=== PATIENT | female | born 1970 | race Caucasian/White ===

== ENCOUNTER 2019-08-08 18:28 | Emergency (ER) | payer OTHER, MEDICAID ==
--- NOTE | 2019-08-08 19:13 | ER Document Report ---
ED Extremity Problem, Upper - General Chief Complaint: Shoulder Injury Stated Complaint: RIGHT ARM PAIN Time Seen by Provider: 08/08/19 19:07 Primary Care Provider: [facility] [Provider Group] - Follow up as needed Mode of Arrival: Ambulatory Information source: Patient Notes: 49-year-old female presented to ED for complaint of pain and discomfort in the right shoulder and arm, left neck and back. 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 This was on Monday at 9 PM. She told the cement handler of the bar that she was hurting a lot but that she would be okay. She states the pain is been increasing since then and now she cannot raise up her right arm and is very painful to move her right shoulder. She states she went to the primary care and they told her she would have to come to the emergency room so she called the cement handler and then he sent her to the emergency room. She states when she woke up this morning her right shoulder was cold and numb and then when the feeling started, back it felt like there was 1000 answer bees sting in her from her shoulder to her fingertips on the right side. TRAVEL OUTSIDE OF THE [place] IN LAST 30 DAYS: No - HPI Patient complains to provider of: Injury, Pain, Right, Left, Arm, Elbow, Shoulder Onset: Other - Monday Recent injury: Yes Where: Work Quality of pain: Achy - Right, Sharp - Left Severity of pain: Still present, Sudden Pain Level: 4 Context: Blow Associated symptoms: Back pain - Left, Neck pain - Left, Other Exacerbated by: Movement, Exertion Relieved by: Rest, Positioning Similar symptoms previously: Yes Recently seen / treated by doctor: No - Related Data Allergies/Adverse Reactions: Penicillins Allergy (Verified 08/08/19 18:58) Home Medications: HYDRAZAZINE. METOPROLOL Past Medical History - General Information source: Patient - Social History Smoking Status: Former Smoker Chew tobacco use (# tins/day): No Frequency of alcohol use: None Drug Abuse: None Occupation: [employer] Lives with: Family Family History: Reviewed & Not Pertinent Patient has suicidal ideation: No Patient has homicidal ideation: No - Past Medical History Cardiac Medical History: Reports: None Pulmonary Medical History: Reports: Hx Asthma, Hx COPD EENT Medical History: Reports: None Neurological Medical History: Reports: None Endocrine Medical History: Reports: None Renal/ Medical History: Reports: None Malignancy Medical History: Reports: None GI Medical History: Reports: Hx Gastroesophageal Reflux Disease Musculoskeletal Medical History: Reports Hx Fibromyalgia, Reports Hx Muscle Spasm, Reports Hx Musculoskeletal Deformity, Reports Hx Musculoskeletal Trauma Skin Medical History: Reports None Psychiatric Medical History: Reports: Hx Anxiety, Hx Depression Traumatic Medical History: Reports: None Infectious Medical History: Reports: None Past Surgical History: Reports: Hx Section, Hx Hysterectomy, Hx Orthopedic Surgery - "titanium plate in my neck" - Immunizations Hx Diphtheria, Pertussis, Tetanus Vaccination: Yes Review of Systems - Review of Systems Constitutional: No symptoms reported EENT: No symptoms reported Cardiovascular: No symptoms reported Respiratory: No symptoms reported Gastrointestinal: No symptoms reported Genitourinary: No symptoms reported Female Genitourinary: No symptoms reported Musculoskeletal: Back pain, Joint pain, Neck pain Skin: No symptoms reported Hematologic/Lymphatic: No symptoms reported Neurological/Psychological: No symptoms reported -: Yes All other systems reviewed and negative Physical Exam - Vital signs Vitals: Pulse Resp BP Pulse Ox 86 18 145/95 H 100 08/08/19 18:33 08/08/19 18:33 08/08/19 18:33 08/08/19 18:33 Interpretation: Normal - General General appearance: Appears well, Alert - HEENT Head: Normocephalic, Atraumatic Eyes: Normal Pupils: PERRL - Respiratory Respiratory status: No respiratory distress Chest status: Nontender Breath sounds: Normal Chest palpation: Normal - Cardiovascular Rhythm: Regular Heart sounds: Normal auscultation Murmur: No - Abdominal Inspection: Normal Distension: No distension Bowel sounds: Normal Tenderness: Nontender Organomegaly: No organomegaly - Back Back: Normal, Tender, Vertebra tenderness. No: Deformity/step-off, CVA tenderness, Scars, Scoliosis, Wounds - Extremities General upper extremity: Normal inspection, Normal color, Normal ROM, Normal temperature General lower extremity: Normal inspection, Nontender, Normal color, Normal ROM, Normal temperature, Normal weight bearing. No: Mame's sign Shoulder: Tender. No: Abrasion, Deformity, Dislocation, Ecchymosis, Instability, Laceration - Neurological Neuro grossly intact: Yes Cognition: Normal Orientation: AAOx4 [place] Coma Scale Eye Opening: Spontaneous [place] Coma Scale Verbal: Oriented [place] Coma Scale Motor: Obeys Commands Sandor Coma Scale Total: 15 Speech: Normal Motor strength normal: LUE, RUE, LLE, RLE Sensory: Normal - Psychological Associated symptoms: Normal affect, Normal mood - Skin Skin Temperature: Warm Skin Moisture: Dry Skin Color: Normal Course - Re-evaluation Re-evalutation: 08/08/19 21:21 No acute findings on x-rays of the neck shoulder or thoracic spine. Written report of these x-rays was given to patient to follow-up with her primary care and orthopedics. Patient was treated with Toradol IM in the emergency room and discharged home with prescription for Flexeril, Pepcid, and Toradol. Patient was instructed that if she continued to have pain she needed to follow-up with orthopedics to get further testing. She was given a written work excuse until Monday. Patient verbalized understanding and agreement with treatment plan. This was a work-related injury. - Vital Signs Vital signs: Temp Pulse Resp BP Pulse Ox 98.9 F 86 18 145/95 H 100 08/08/19 18:59 08/08/19 18:33 08/08/19 18:33 08/08/19 18:33 08/08/19 18:33 - Diagnostic Test Radiology reviewed: Image reviewed, Reports reviewed Discharge - Discharge Clinical Impression: Neck pain on left side Right shoulder pain Qualifiers: Chronicity: acute Qualified Code(s): M25.511 - Pain in right shoulder Left shoulder pain Qualifiers: Chronicity: acute Qualified Code(s): M25.512 - Pain in left shoulder Condition: Stable Disposition: HOME, SELF-CARE Additional Instructions: NECK INJURY (CERVICAL STRAIN): You have a neck strain. This is an injury to the muscles and ligaments in the neck. There is no evidence of a fracture of the neck bones. Also, no injury to the spinal cord or nerve roots was detected. Usually, stiffness and pain INCREASE for the first 24-48 hours after the injury. The pain will gradually resolve and the neck will become more mobile. Most patients are back at work or school within a few days. Typically, complete healing takes about two or three weeks. The usual initial treatment is rest and cold packs. A neck collar may be placed to keep the muscles of the neck at rest. Antiinflammatory and muscle relaxing medication are often used to reduce the spasm and irritation. You should call the doctor, or go to the hospital, if you develop numbness or weakness in any extremity, problems with your bladder or bowel, or pain radiating down the arms. MUSCLE STRAIN: You have strained a muscle -- torn the fibers within the muscle. This often occurs with strenuous exertion, or during an injury that suddenly stretches the muscle. The seriousness of a strain varies. Some strains heal within days, others cause problems for months. X-rays cannot show a muscle strain. X-rays are taken only if symptoms suggest that a fracture could be present. The usual treatment of a muscle strain is rest and ice packs. Sometimes, a sling, splint, or crutches may be necessary to rest the muscle. The muscle can be used again once pain subsides. Severe strains require a special exercise and stretching program to prevent permanent stiffness and disability. Your doctor will advise you if this will be necessary. Call the doctor immediately if pain or swelling becomes severe, or if numbness or discoloration develop. CONTUSION: Your injury has resulted in a contusion -- a crushing of the deep tissues. No injury to important structures was detected during the physician's exam. Contusions vary in the amount of pain they cause, and in the length of time required for healing. Typically, the area will become bruised, and will remain painful to touch for two or three weeks. However, most patients are back to working and playing within a few days. After the initial period of rest and cold-packs, your symptoms (together with the doctor's recommendations) will determine how rapidly you can get back to full activity. Usually this means "do what feels okay, but don't do things that hurt." If re-examination was recommended, it's important to follow up as instructed. Call the doctor or return any time if pain increases, if swelling becomes severe, if you develop numbness or weakness in an injured extremity, or if any other alarming symptoms occur. Shoulder Injury You have injured your shoulder. This usually results from stretching or tearing of the tendons during trauma. Time and protection are required in order to heal properly. Many injuries are quite disabling, and should be taken seriously. Initial treatment includes cold packs and a sling to rest the shoulder. The physician has assessed the seriousness of your injury, and has outlined a treatment plan. Understand that this treatment may change, depending on how you progress. If a re-examination was recommended, it is important that you follow up as instructed. Some shoulder injuries (such as partial tear of the rotator cuff) are only suspected after you've failed to improve. Call us if there's severe pain, numbness, or loss of function. USE OF TYLENOL (ACETAMINOPHEN): Acetaminophen may be taken for pain relief or fever control. It's much safer than aspirin, offering a wider range of "safe" dosages. It is safe during . Some brand names are Tylenol, Panadol, Datril, Anacin 3, Tempra, and Liquiprin. Acetaminophen can be repeated every four hours. The following are maximum recommended dosages: WEIGHT Dose Drops Elixir Chewable(80mg) (LBS.) drprs=droppers tsp=teaspoon 6 40 mg 0.4 ml (1/2) 6-11 80 mg 0.8 ml (full) tsp 1 tab 12-16 120 mg 1 1/2 drprs 3/4 tsp 1 1/2 tabs 17-23 160 mg 2 drprs 1 tsp 2 tabs 24-30 240 mg 3 drprs 1 1/2 tsp 3 tabs 30-35 320 mg 2 tsp 4 tabs 36-41 360 mg 2 1/4 tsp 4 1/2 tabs 42-47 400 mg 2 1/2 tsp 5 tabs 48-53 480 mg 3 tsp 6 tabs 54-59 520 mg 3 1/4 tsp 6 1/2 tabs 60-64 560 mg 3 1/2 tsp 7 tabs 65-70 600 mg 3 3/4 tsp 7 1/2 tabs 71-76 640 mg 4 tsp 8 tabs 77-82 720 mg 4 1/2 tsp 9 tabs 83-88 800 mg 5 tsp 10 tabs >89 pounds or adults 650 mg to 900 mg Acetaminophen can be repeated every four hours. Maximum dose not to exceed 4000 mg a day. These maximum recommended dosages are slightly higher than the dosages written on the product container, but these dosages are very safe and below the toxic dosage for acetaminophen. Exercise Program for the Shoulder Since the shoulder moves in so many directions, the joint attachment is weak. Muscles provide most of the stability to the shoulder. You must exercise your shoulder to prevent painful instability or stiffening. PASSIVE - These may be begun within a few days of the injury. While standing, lean forward, allowing the arm to hang down towards the floor. Move the arm in small circles while slowly twisting your chest towards and away from the hanging arm. Do this for one minute. ACTIVE - These may be performed when the doctor gives permission. Begin with the arms at the sides. Raise the arms forward (shoulder's width apart) unt il they reach shoulder level. Then slowly swing both arms back until they are aiming straight out away from each other. Then bring them forward again, and finally, lower them to your sides. Repeat 20 to 30 times. As you improve, put weights in your hands for the exercise. Start with one pound, and work up to 10 pounds. Never use more than is comfortable. Athletes may work up to 30 pounds. ICE PACKS: Apply ice packs frequently against the painful area. Many different schedules are recommended, such as "20 minutes on, 20 minutes off" or "one hour ice, two hours rest." If you need to work, you may need to go longer between ice treatments. You should plan to have the area ice packed AT LEAST one fourth of the time. The ice should be applied over the wrap, tape, or splint, or over a layer of cloth -- not directly against the skin. Some ice bags have a built-in cloth and can be put directly on the skin. WARM PACKS: After approximately two days, apply gentle heat (such as a heating pad or hot water bottle) for about 20 to 30 minutes about every two hours -- at least four times daily. Warmth and elevation will help you make a more rapid recovery, and will ease the pain considerably. Do not use HOT heat, and never apply heat for longer than 30 minutes. The continuous heat can invisibly damage skin and muscles -- even when no burn is seen on the surface. Damaged muscles can make you MORE sore. MUSCLE RELAXERS: Muscle relaxing medications are usually prescribed for acute muscle spasm or injury to the neck and back. They are often combined with antiinflammatory pain medication for increased relief. You may stop the muscle relaxer when the pain and stiffness have improved. Start the medication again if spasms recur. Muscle relaxers may cause drowsiness, especially with the first dose. Do not operate machinery or drive while under the effects of the medication. Most muscle relaxers last up to 24 hours. Do not combine the medication with alcohol. Toradol Injection You have been given an injection of ketorolac tromethamine (Toradol). This is an excellent, safe drug for pain control. It also has potent antiinflammatory action. You should have significant pain relief within about one hour. Toradol is not addicting and is non-sedating. It does not interfere with driving or work. Call or return if you develop itching, hives, shortness of breath, or rash. FOLLOW-UP CARE: If you have been referred to a physician for follow-up care, call the physicians office for an appointment as you were instructed or within the next two days. If you experience worsening or a significant change in your symptoms, notify the physician immediately or return to the Emergency Department at any time for re-evaluation. Prescriptions: Ketorolac Tromethamine [Toradol 10 mg Tablet] 10 mg PO Q8HP PRN #7 tablet PRN Reason: Cyclobenzaprine HCl [Flexeril 10 mg Tablet] 10 mg PO TIDP PRN #15 tab PRN Reason: Famotidine [Pepcid 20 mg Tablet] 20 mg PO BID #12 tablet Forms: Elevated Blood Pressure, Return to Work Referrals: [facility] ([facility] [Provider Group] - Follow up as needed
--- NOTE | 2019-08-08 19:43 | RADIOLOGY REPORT (SQ) ---
EXAM DESCRIPTION: CERV SP 4 OR 5 VIEWS; T SPINE AP/LAT; SHOULDER LEFT 2 OR MORE VIEWS; SHOULDER RIGH T 2 OR MORE VIEWS COMPLETED DATE/TIME: 08/08/2019 7:34 pm REASON FOR STUDY: Pain and injury to the neck and shoulder; pain and injury; Pain injury COMPARISON: None. FINDINGS: Five views cervical spine: C4 through C6 anterior instrumentation, intact. No evidence o f significant malalignment. Disc disease below and above surgery. No fracture. Patent neural xavier rizwan. Clear lung apices. Three views right shoulder: No bone, joint or soft tissue abnormality. Three views left shoulder: No bone, joint or soft tissue abnormality. Two views thoracic spine: Mild scoliosis. Mild multilevel disc space narrowing with small osteophyt es, degenerative. No fracture. No mediastinal widening. Clear lungs. TECHNICAL DOCUMENTATION: JOB ID: [id number] Reading location - IP/workstation name: [email or web address]
--- NOTE | 2019-08-08 19:43 | RADIOLOGY REPORT (SQ) ---
EXAM DESCRIPTION: CERV SP 4 OR 5 VIEWS; T SPINE AP/LAT; SHOULDER LEFT 2 OR MORE VIEWS; SHOULDER RIGH T 2 OR MORE VIEWS COMPLETED DATE/TIME: 08/08/2019 7:34 pm REASON FOR STUDY: Pain and injury to the neck and shoulder; pain and injury; Pain injury COMPARISON: None. FINDINGS: Five views cervical spine: C4 through C6 anterior instrumentation, intact. No evidence o f significant malalignment. Disc disease below and above surgery. No fracture. Patent neural xavier rizwan. Clear lung apices. Three views right shoulder: No bone, joint or soft tissue abnormality. Three views left shoulder: No bone, joint or soft tissue abnormality. Two views thoracic spine: Mild scoliosis. Mild multilevel disc space narrowing with small osteophyt es, degenerative. No fracture. No mediastinal widening. Clear lungs. TECHNICAL DOCUMENTATION: JOB ID: [id number] Reading location - IP/workstation name: [email or web address]
--- NOTE | 2019-08-08 19:43 | RADIOLOGY REPORT (SQ) ---
EXAM DESCRIPTION: CERV SP 4 OR 5 VIEWS; T SPINE AP/LAT; SHOULDER LEFT 2 OR MORE VIEWS; SHOULDER RIGH T 2 OR MORE VIEWS COMPLETED DATE/TIME: 08/08/2019 7:34 pm REASON FOR STUDY: Pain and injury to the neck and shoulder; pain and injury; Pain injury COMPARISON: None. FINDINGS: Five views cervical spine: C4 through C6 anterior instrumentation, intact. No evidence o f significant malalignment. Disc disease below and above surgery. No fracture. Patent neural xavier rizwan. Clear lung apices. Three views right shoulder: No bone, joint or soft tissue abnormality. Three views left shoulder: No bone, joint or soft tissue abnormality. Two views thoracic spine: Mild scoliosis. Mild multilevel disc space narrowing with small osteophyt es, degenerative. No fracture. No mediastinal widening. Clear lungs. TECHNICAL DOCUMENTATION: JOB ID: [id number] Reading location - IP/workstation name: [email or web address]
--- NOTE | 2019-08-08 19:43 | RADIOLOGY REPORT (SQ) ---
EXAM DESCRIPTION: CERV SP 4 OR 5 VIEWS; T SPINE AP/LAT; SHOULDER LEFT 2 OR MORE VIEWS; SHOULDER RIGH T 2 OR MORE VIEWS COMPLETED DATE/TIME: 08/08/2019 7:34 pm REASON FOR STUDY: Pain and injury to the neck and shoulder; pain and injury; Pain injury COMPARISON: None. FINDINGS: Five views cervical spine: C4 through C6 anterior instrumentation, intact. No evidence o f significant malalignment. Disc disease below and above surgery. No fracture. Patent neural xavier rizwan. Clear lung apices. Three views right shoulder: No bone, joint or soft tissue abnormality. Three views left shoulder: No bone, joint or soft tissue abnormality. Two views thoracic spine: Mild scoliosis. Mild multilevel disc space narrowing with small osteophyt es, degenerative. No fracture. No mediastinal widening. Clear lungs. TECHNICAL DOCUMENTATION: JOB ID: [id number] Reading location - IP/workstation name: [email or web address]
[2019-08-08] MEDS ORDERED: KETOROLAC TROMETHAMINE INJ/PF 30 MG/1 ML SDV IM ONE (20:57)
[2019-08-08 21:31] VITALS: BP 118/85
== END 2019-08-08 21:28 | disposition home or self-care (01) ==
LOC: ER 18:28
DX: M25.511 Pain in right shoulder (principal); M25.512 Pain in left shoulder; M54.2 Cervicalgia; M54.9 Dorsalgia, unspecified; M79.601 Pain in right arm; W20.8XXA Other cause of strike by thrown, projected or falling object, initial encounter; Y93.89 Activity, other specified; Y92.511 Restaurant or cafe as the place of occurrence of the external cause; Y99.0 Civilian activity done for income or pay; J44.9 Chronic obstructive pulmonary disease, unspecified; Z79.899 Other long term (current) drug therapy; Z88.0 Allergy status to penicillin
CPT/HCPCS: 99283; 96372; 72050; 73030 ×2; 72070; J1885

== ENCOUNTER 2019-08-31 02:38 | Emergency (ER) | payer MEDICAID, OTHER ==
[2019-08-31] MEDS ORDERED: LORAZEPAM INJ 2 MG/1 ML VIAL IV ONE (02:49)
--- NOTE | 2019-08-31 03:22 | ER Document Report ---
Entered by LORI DONNELLY SCRIBE 08/31/19 0255 Acting as scribe for:WIN SALCEDO IV, MD ED Substance Abuse / Acc. OD - General Mode of Arrival: Medic Information source: Emergency Med Personnel TRAVEL OUTSIDE OF THE [place] IN LAST 30 DAYS: No <WIN SALCEDO IV - Last Filed: 08/31/19 05:55> <GOLDTERRIE Emigdio - Last Filed: 08/31/19 13:41> - General Stated Complaint: ETOH Time Seen by Provider: 08/31/19 02:49 Primary Care Provider: GILBERT APONTE MD [HONORARY] - Follow up as needed Notes: This 49 year old female patient brought in by EMS presents to the ED today with complaints of ETOH abuse that occurred prior to arrival. EMS reports that they were called by the patient's 16 year old son who stated that the patient has been drinking since 1900 last night and was outside stumbling around. EMS reports that the patient was initially cooperative and declined transport to the ED, so they advised her to go in the house and lay down. EMS states that they were called out again because the patient was laying on the ground outside and the son became concerned. They report that they were at the scene for approximately x3 hours waiting on IFS to arrive for a possible IVC. EMS states that the patient became hostile and agitated when IFS arrived and went voluntarily into the ambulance so she wouldn't be IVC'ed. EMS reports that the patient became combative en route, so they placed her in 4-point restraints and administered IV Versed. According to EMS, a large bottle of vodka was found at the scene, but they are unaware of how much she drank. (WIN SALCEDO IV) - Related Data Allergies/Adverse Reactions: Penicillins Allergy (Verified 08/08/19 18:58) Past Medical History - General Information source: [facility] Records - Social History Smoking Status: Unknown if Ever Smoked Cigarette use (# per day): No Chew tobacco use (# tins/day): No Smoking Education Provided: No Lives with: Family Family History: Reviewed & Not Pertinent Patient has suicidal ideation: No Patient has homicidal ideation: No Pulmonary Medical History: Reports: Hx Asthma, Hx COPD GI Medical History: Reports: Hx Gastroesophageal Reflux Disease Musculoskeletal Medical History: Reports Hx Fibromyalgia, Reports Hx Muscle Spasm, Reports Hx Musculoskeletal Deformity, Reports Hx Musculoskeletal Trauma Psychiatric Medical History: Reports: Hx Anxiety, Hx Depression Past Surgical History: Reports: Hx Section, Hx Hysterectomy, Hx Or thopedic Surgery - "titanium plate in my neck" - Immunizations Hx Diphtheria, Pertussis, Tetanus Vaccination: Yes <WIN SALCEDO IV - Last Filed: 08/31/19 05:55> Review of Systems - Review of Systems Constitutional: See HPI, Other - ETOH abuse EENT: No symptoms reported Cardiovascular: No symptoms reported Gastrointestinal: No symptoms reported Genitourinary: No symptoms reported Female Genitourinary: No symptoms reported Musculoskeletal: No symptoms reported Skin: No symptoms reported Hematologic/Lymphatic: No symptoms reported Neurological/Psychological: No symptoms reported -: Yes All other systems reviewed and negative <WIN SALCEDO IV - Last Filed: 08/31/19 05:55> Physical Exam - General General appearance: Alert, Other - Smells of byproducts of ETOH metabolism - HEENT Head: Normocephalic, Atraumatic Eyes: Normal Pupils: PERRL - Respiratory Respiratory status: No respiratory distress Chest status: Nontender Breath sounds: Normal Chest palpation: Normal - Cardiovascular Rhythm: Regular, Tachycardia Heart sounds: Normal auscultation Murmur: No Friction rub: No Gallop: None auscultated - Abdominal Inspection: Normal Distension: No distension Bowel sounds: Normal Tenderness: Nontender - Abdomen soft Organomegaly: No organomegaly - Back Back: Normal, Nontender - Extremities General upper extremity: Normal inspection Knee: Abrasion - Left knee - Neurological Neuro grossly intact: Yes Speech: Other - Slurred - Skin Skin Temperature: Warm Skin Moisture: Dry Skin Color: Normal <WIN SALCEDO IV - Last Filed: 08/31/19 05:55> - Vital signs Vitals: Temp Pulse Resp BP Pulse Ox 98.0 F 104 H 14 135/85 H 95 08/31/19 02:39 08/31/19 02:39 08/31/19 02:39 08/31/19 02:39 08/31/19 02:39 Course - Laboratory Result Diagrams: 08/31/19 03:00 08/31/19 03:00 - Transfer of Care Care transferred to following provider: Dr. Godl at 0600 <WIN SALCEDO IV - Last Filed: 08/31/19 05:55> - Laboratory Result Diagrams: 08/31/19 03:00 08/31/19 03:00 <TERRIE GOLD - Last Filed: 08/31/19 13:41> - Re-evaluation Re-evalutation: 08/31/19 13:32 Patient ambulatory in hallway walking to the bathroom without any signs of gait disturbance or speech disturbance patient is medically cleared to be discharged home with follow-up as determine for alcohol detox follow-up. (TERRIE GOLD) - Vital Signs Vital signs: Temp Pulse Resp BP Pulse Ox 97.5 F 107 H 20 131/87 H 93 08/31/19 11:00 08/31/19 11:00 08/31/19 11:00 08/31/19 11:00 08/31/19 11:00 - Laboratory Laboratory results interpreted by me: 08/31/19 08/31/19 03:00 03:00 RDW 15.5 H Sodium 147.6 H Chloride 114 H Alkaline Phosphatase 129 H 08/31/19 13:33 No acute significant alterations in the laboratory. Patient appears dehydrated. (TERRIE GOLD) Discharge <WIN SALCEDO IV - Last Filed: 08/31/19 05:55> <TERRIE GOLD - Last Filed: 08/31/19 13:41> - Discharge Clinical Impression: Alcohol intoxication Qualifiers: Complication of substance-induced condition: uncomplicated Qualified Code(s): F10.920 - Alcohol use, unspecified with intoxication, uncomplicated Condition: Good Disposition: HOME, SELF-CARE Additional Instructions: Return to the Emergency Department without delay if any worse. HOME CARE INSTRUCTIONS & INFORMATION: Thank you for choosing us for your medical needs. We hope you're satisfied with the care you received. After you leave, you must properly care for your problem and, at the same time, observe its progress. Any condition can change. Some illnesses can change rapidly over hours or days. If your condition worsens, return to the Emergency Department or see your physician promptly. ABOUT YOUR X-RAYS AND EKG'S: If you had an EKG or X-rays taken, they have been read by the Emergency Physician. The X-rays and EKG's will also be read by a Radiologist or Fire Alarm Inspector within 24 hours. If discrepancies are noted, you will be notified by telephone. Please be certain the ED has a correct telephone number & address where you can be reached. Also, realize that some fractures or abnormalities do not show up on initial X-rays. If your symptoms continue, see your physician. ABOUT YOUR LABORATORY TEST: If you had laboratory tests, the results have been reviewed by the Emergency Physician. Some test results (for example cultures) may not be available for several days. You will be contacted if any test result shows you need additional treatment. Please be certain the ED has a correct telephone number and address where you can be reached. ABOUT YOUR MEDICATIONS: You will receive instructions on how to take your medicine on the prescription label you receive. Additional information may be provided by the Pharmacy. If you have questions afterwards, call the ED for clarification or further instructions. Some prescribed medications may cause drowsiness. Do not perform tasks such as driving a car or operating machinery without consulting your Pharmacist. If you feel you need a refill of pain medication, your condition will need re-evaluation. Please do not call for a refill of any medication. ABOUT YOUR SIGNATURE: Signature of this document acknowledges to followin. Understanding that you received emergency treatment and that you may be released before al medical problems are known or treated. Please be certain the ED has a correct phone number & address where you can be reached. 2. Acknowledgement that you will arrange for follow-up care as recommended. 3. Authorization for the Emergency Physician to provide information to your follow-up Physician in order to maximize your care. AT ANY TIME, IF YOUR SYMPTOMS CHANGE SIGNIFICANTLY OR WORSEN OR YOU DEVELOP NEW SYMPTOMS, RETURN TO THE EMERGENCY DEPARTMENT IMMEDIATELY FOR RE-EVALUATION. OUR GOAL IS TO PROVIDE EXCELLENT MEDICAL CARE! WE HOPE THAT WE HAVE MET YOUR EXPECTATIONS DURING YOUR EMERGENCY DEPARTMENT VISIT AND THAT YOU FEEL YOU HAVE RECEIVED EXCELLENT CARE! Acute Alcohol Intoxication Your evaluation revealed very high levels of alcohol. You can from drinking a large amount of alcohol rapidly! Further, there's the risk of falls, traffic accidents, and fights. A high portion (about 50 percent) of the serious injuries seen in hospital emergency rooms are caused by alcohol. Alcohol overdosage is usually due to an underlying emotional or psychiatric problem. You may benefit from counselling. If "binge" drinking is an ongoing problem for you, or if you drink ANY AMOUNT of alcohol EVERY day, you most likely have a tendency to alcoholism. You should avoid alcohol totally. We can refer you for treatment. Persons with alcohol problems are often also prone to other addictions -- you should discuss any use of medications or drugs with the doctor. You should be watched at home for the next several hours by someone who has not been drinking. Get extra fluids for the next 24 hours. Call the doctor if there is repeated vomiting, increasing headache, decreasing level of alertness, or any other worsening. Referrals: GILBERT APONTE MD [HONORARY] - Follow up as needed I personally performed the services described in the documentation, reviewed and edited the documentation which was dictated to the scribe in my presence, and it accurately records my words and actions.
[2019-08-31 04:03] LABS: ALCOHOL 247 mg/dL (NONE DETECTED); ALKALINE PHOSPHATASE 129 U/L (38-126); ANION GAP 5 (5-19); ASPARTATE AMINO TRANSFERASE 32 U/L (14-36); BILIRUBIN,TOTAL 0.2 mg/dL (0.2-1.3); BLOOD UREA NITROGEN 15 mg/dL (7-20); CALCIUM 9.3 mg/dL (8.4-10.2); CARBON DIOXIDE 29 mmol/L (22-30); CHLORIDE 114 mmol/L (98-107); GLUCOSE 103 mg/dL (75-110); POTASSIUM 4.3 mmol/L (3.6-5.0); TOTAL PROTEIN 6.7 g/dL (6.3-8.2)
[2019-08-31 04:12] LABS: ABSOLUTE BASOPHILS # (AUTO) 0.1 10^3/uL (0.0-0.2); ABSOLUTE EOSINOPHILS # (AUTO) 0.1 10^3/uL (0.0-0.6); ABSOLUTE LYMPHOCYTES (AUTO) 2.6 10^3/uL (0.5-4.7); ABSOLUTE MONOCYTES (AUTO) 0.3 10^3/uL (0.1-1.4); BASOPHILS % (AUTO) 0.8 % (0-2); TOTAL CELLS COUNTED % (AUTO) 100 %; WHITE BLOOD COUNT 7.1 10^3/uL (4.0-10.5)
[2019-08-31 04:19] LABS: EOSINOPHILS % (AUTO) 0.7 % (0-6); HEMATOCRIT 38.6 % (36.0-47.0); HEMOGLOBIN 12.7 g/dL (12.0-15.5); MEAN CORPUSCULAR HGB CONC 32.9 g/dL (32.0-36.0); MEAN CORPUSCULAR VOLUME 88 fl (80-97); MONOCYTES % (AUTO) 4.4 % (3-13); PLATELET COUNT 310 10^3/uL (150-450); RED BLOOD COUNT 4.38 10^6/uL (3.72-5.28); RED CELL DISTRIBUTION WIDTH 15.5 % (11.5-14.0); SEGMENTED NEUTROPHILS % (AUTO) 57.1 % (42-78)
--- NOTE | 2019-08-31 09:57 | EKG REPORT ---
SEVERITY:- OTHERWISE NORMAL ECG - SINUS TACHYCARDIA : Confirmed by: Samir Ervin MD 31-Aug-2019 09:57:03
[2019-08-31] MEDS ORDERED: ACETAMINOPHEN 325 MG TABLET PO ONE (13:38)
[2019-08-31 13:41] VITALS: BP 139/82
== END 2019-08-31 14:36 | disposition home or self-care (01) ==
LOC: ER 02:38
DX: F10.920 Alcohol use, unspecified with intoxication, uncomplicated (principal); R00.0 Tachycardia, unspecified; Z88.0 Allergy status to penicillin; Z78.1 Physical restraint status
CPT/HCPCS: 93005; 99284; 96374; 36415; 80307; 85025; 80053; 93010; J3490; J2060

== ENCOUNTER 2020-04-19 18:46 | Emergency (ER) | payer MEDICAID, OTHER ==
--- NOTE | 2020-04-19 19:23 | ER Document Report ---
ED Medical Screen (RME) - General Stated Complaint: NECK PAIN Time Seen by Provider: 04/19/20 19:16 Mode of Arrival: Ambulatory Information source: Patient Notes: HPI; 49-year-old female presents to the emergency room complaining of anterior neck pain for the past 4 days with nausea that started yesterday. States she vomited once today. Also complaining of dizziness for the past 3 days. States that she just feels "off balance". Denies chest pain, shortness of breath, no difficulty breathing. No ill contacts. No COVID-19 exposure. PE: Alert and oriented x3. Lungs: Clear to auscultation without rales, rhonchi, wheezes. Heart: Regular rate rhythm without murmurs, rubs, gallops. I have greeted and performed a rapid initial assessment of this patient. A comprehensive ED assessment and evaluation of the patient, analysis of test results and completion of the medical decision making process will be conducted by additional ED providers. I have specifically instructed the patient or family members with the patient to immediately return to any nursing staff should anything change in the patient's condition or with their chief complaint. TRAVEL OUTSIDE OF THE [place] IN LAST 30 DAYS: No - Related Data Allergies/Adverse Reactions: Penicillins Allergy (Verified 08/08/19 18:58) Past Medical History Pulmonary Medical History: Reports: Hx Asthma, Hx COPD GI Medical History: Reports: Hx Gastroesophageal Reflux Disease Musculoskeltal Medical History: Reports Hx Fibromyalgia, Reports Hx Muscle Spasm, Reports Hx Musculoskeletal Deformity, Reports Hx Musculoskeletal Trauma Psychiatric Medical History: Reports: Hx Anxiety, Hx Depression Past Surgical History: Reports: Hx Section, Hx Hysterectomy, Hx Orthopedic Surgery - "titanium plate in my neck" - Immunizations Hx Diphtheria, Pertussis, Tetanus Vaccination: Yes
[2020-04-19 20:03] LABS: ABSOLUTE BASOPHILS # (AUTO) 0.1 10^3/uL (0.0-0.2); ABSOLUTE EOSINOPHILS # (AUTO) 0.1 10^3/uL (0.0-0.6); ABSOLUTE LYMPHOCYTES (AUTO) 2.3 10^3/uL (0.5-4.7); ABSOLUTE MONOCYTES (AUTO) 0.5 10^3/uL (0.1-1.4); ABSOLUTE NEUT (AUTO) 6.3 10^3/uL (1.7-8.2); BASOPHILS % (AUTO) 0.8 % (0-2); EOSINOPHILS % (AUTO) 0.6 % (0-6); HEMATOCRIT 36.6 % (36.0-47.0); HEMOGLOBIN 12.3 g/dL (12.0-15.5); LYMPHOCYTES % (AUTO) 25.1 % (13-45); MEAN CORPUSCULAR HEMOGLOBIN 27.8 pg (27.0-33.4); MEAN CORPUSCULAR HGB CONC 33.6 g/dL (32.0-36.0); MEAN CORPUSCULAR VOLUME 83 fl (80-97); MONOCYTES % (AUTO) 5.3 % (3-13); PLATELET COUNT 309 10^3/uL (150-450); RED BLOOD COUNT 4.43 10^6/uL (3.72-5.28); RED CELL DISTRIBUTION WIDTH 14.9 % (11.5-14.0); SEGMENTED NEUTROPHILS % (AUTO) 68.2 % (42-78); TOTAL CELLS COUNTED % (AUTO) 100 %; WHITE BLOOD COUNT 9.2 10^3/uL (4.0-10.5)
[2020-04-19 20:22] LABS: ALBUMIN 4.7 g/dL (3.5-5.0); ALKALINE PHOSPHATASE 136 U/L (38-126); ANION GAP 10 (5-19); ASPARTATE AMINO TRANSFERASE 24 U/L (14-36); BILIRUBIN,DIRECT 0.1 mg/dL (0.0-0.4); BILIRUBIN,TOTAL 0.5 mg/dL (0.2-1.3); BLOOD UREA NITROGEN 10 mg/dL (7-20); CALCIUM 10.5 mg/dL (8.4-10.2); CARBON DIOXIDE 30 mmol/L (22-30); CHLORIDE 98 mmol/L (98-107); GLUCOSE 113 mg/dL (75-110); POTASSIUM 5.8 mmol/L (3.6-5.0); TOTAL PROTEIN 7.5 g/dL (6.3-8.2)
--- NOTE | 2020-04-19 20:25 | RADIOLOGY REPORT (SQ) ---
CT HEAD WITHOUT IV CONTRAST CLINICAL STATEMENT: dizzy TECHNIQUE: Axial CT images from skull base to vertex without IV contrast. This exam was performed according to our departmental dose optimization program, and includes the following measures where applicable: automated exposure control, adjustment of the mAs and/or kVp according to patient size and/or exam, and an iterative reconstruction algorithm. COMPARISON: None. FINDINGS: There is no acute intracranial hemorrhage, mass, mass effect or abnormal extra-axial fluid collection. No evidence of an acute territorial infarct is identified. The ventricles are normal. Calvaria: The skull base and calvaria demonstrate no abnormality. Paranasal sinuses: An air-fluid levels present in the left maxillary sinus suggesting acute sinusitis. Orbits are unremarkable. Globes are intact. skull base: Unremarkable IMPRESSION: 1. No intracranial hemorrhage or mass lesion. 2. Air-fluid level in the left maxillary sinus suggesting sinusitis.
--- NOTE | 2020-04-19 21:06 | ER Document Report ---
ED Neck/Back Problem - General Chief Complaint: Stiff Neck Stated Complaint: NECK PAIN Time Seen by Provider: 04/19/20 19:16 Mode of Arrival: Ambulatory Notes: CHIEF COMPLAINT: Multiple complaints HPI: 49-year-old female who smokes with history of hypertension and prior neck surgery presenting with anterior neck pain over the last 3 to 4 days. No chest pain no shortness of breath. Reports that she has been having some facial congestion as well as some dizziness or lightheadedness over the last 3 days. No weakness numbness or tingling in the extremities. Patient has taken no medications for her symptoms. She has not contacted her primary care provider for evaluation of her symptoms. Reports she just recently started smoking again. ROS: See HPI - all other systems were reviewed and are otherwise negative Constitutional: no fever Eyes: no drainage, no blurred vision ENT: no runny nose, + sore throat Cardiovascular: no chest pain Resp: no SOB, no cough GI: no vomiting, no diarrhea, no abdominal pain : no dysuria Integumentary: no rash Allergy: no hives Musculoskeletal: no extremity pain or swelling, positive neck pain Neurological: no numbness/tingling, no weakness MEDICATIONS: I agree with the patient medications as charted by the RN. ALLERGIES: I agree with the allergies as charted by the RN. PAST MEDICAL HISTORY/PAST SURGICAL HISTORY: Reviewed and agree as charted by RN. SOCIAL HISTORY: Reviewed and agree as charted by RN. FAMILY HISTORY: No significant familial comorbid conditions directly related to patient complaint EXAM: Reviewed vital signs as charted by RN. CONSTITUTIONAL: Alert and oriented and responds appropriately to questions. Well-appearing; well-nourished HEAD: Normocephalic; atraumatic EYES: PERRL; Conjunctivae clear, sclerae non-icteric ENT: normal nose; positive clear rhinorrhea; moist mucous membranes; pharynx without lesions noted, no uvula edema or deviation, no tonsillar hypertrophy, phonation normal NECK: Supple without meningismus; non-tender; no cervical lymphadenopathy, no masses. No pulsatile masses. No bruit bilaterally CARD: RRR; no murmurs, no clicks, no rubs, no gallops; symmetric distal pulses RESP: Normal chest excursion without splinting or tachypnea; breath sounds clear and equal bilaterally; no wheezes, no rhonchi, no rales, pulse oximetry 97% on room air not hypoxic ABD/GI: Normal bowel sounds; non-distended; soft, non-tender, no rebound, no guarding; no palpable organomegaly or masses. BACK: The back appears normal and is non-tender to palpation, there is no CVA tenderness EXT: Normal ROM in all joints; no cyanosis, no effusions, no edema SKIN: Normal color for age and race; warm; dry; good turgor; no acute lesions noted NEURO: Moves all extremities equally; Motor and sensory function intact PSYCH: The patient's mood and manner are appropriate. Grooming and personal hygiene are appropriate. MDM: EKG normal sinus rhythm with a ventricular rate of 67, ND 128, QT 4 4, QTc 427. Normal EKG no other ectopy. Interpreted by emergency department physicians. 49-year-old female presenting with anterior neck pain intermittent over 4 days time, initial work-up done through the triage process showed negative screening labs including CBC CMP and troponin. Her EKG is normal. She has no bruit in the anterior neck suggesting significant vascular disease at this time or aneurysm. She is able to verbalize without slurred speech or difficulty. When I entered the room she was eating Cheetos and having no di fficulty swallowing. She obviously does not have an obstruction. She has no headache. No neurologic symptoms suggesting CVA. I spoke with her at length about her symptoms. She certainly would have risk factors for vascular disease given her hypertension, smoking history. She likely needs outpatient follow-up and further evaluation which may include carotid Doppler studies. She states she has had these before she saw cardiology about 5 years ago. She has a local primary care provider that she will continue to follow with you may order Doppler study for her as an outpatient at this time. I will place her on a course of antibiotics for her sinus infection which was noted on CT imaging today. She does report some mild congestion. Unable to delineate a definitive timeframe on this. Did recommend she stop smoking. TRAVEL OUTSIDE OF THE [place] IN LAST 30 DAYS: No - Related Data Allergies/Adverse Reactions: Penicillins Allergy (Verified 04/19/20 20:32) Home Medications: metropolol Past Medical History - General Information source: Patient - Social History Smoking Status: Current Every Day Smoker Family History: Reviewed & Not Pertinent Patient has homicidal ideation: No Pulmonary Medical History: Reports: Hx Asthma, Hx COPD GI Medical History: Reports: Hx Gastroesophageal Reflux Disease Musculoskeletal Medical History: Reports Hx Fibromyalgia, Reports Hx Muscle Spasm, Reports Hx Musculoskeletal Deformity, Reports Hx Musculoskeletal Trauma Psychiatric Medical History: Reports: Hx Anxiety, Hx Depression Past Surgical History: Reports: Hx Section, Hx Hysterectomy, Hx Orthopedic Surgery - "titanium plate in my neck" - Immunizations Hx Diphtheria, Pertussis, Tetanus Vaccination: Yes Course - Laboratory Result Diagrams: 04/19/20 19:50 04/19/20 19:50 Laboratory results interpreted by me: 04/19/20 04/19/20 19:50 19:50 RDW 14.9 H Potassium 5.8 H Glucose 113 H Calcium 10.5 H Alkaline Phosphatase 136 H Discharge - Discharge Clinical Impression: Neck pain Sinusitis, acute Qualifiers: Sinusitis location: maxillary Recurrence: non-recurrent Qualified Code(s): J01.00 - Acute maxillary sinusitis, unspecified Condition: Stable Disposition: HOME, SELF-CARE Additional Instructions: Take the antibiotics as prescribed for the sinus infection. Follow-up with your primary care provider and with cardiology for further evaluation and management of your neck pain. It is imperative that you stop smoking. Given your history you will likely need further outpatient studies which may include a carotid Doppler where they ultrasound the anterior neck. This can be ordered by your primary care provider or by cardiology. If you have worsening symptoms please return for reevaluation as discussed Prescriptions: Doxycycline Monohydrate 100 mg PO BID #28 capsule Referrals: TODD LOW MD [ACTIVE STAFF] - Follow up as needed
[2020-04-19] MEDS ORDERED: DOXYCYCLINE HYCLATE 100 MG TABLET PO ONE (21:13)
--- NOTE | 2020-04-19 23:56 | EKG REPORT ---
SEVERITY:- NORMAL ECG - SINUS RHYTHM : Confirmed by: Tamara Devi 19-Apr-2020 23:56:03
== END 2020-04-19 21:34 | disposition home or self-care (01) ==
LOC: ER 18:46
DX: J01.00 Acute maxillary sinusitis, unspecified (principal); M54.2 Cervicalgia; M43.6 Torticollis; R42 Dizziness and giddiness; R68.89 Other general symptoms and signs; R09.81 Nasal congestion; I10 Essential (primary) hypertension; F17.200 Nicotine dependence, unspecified, uncomplicated; J44.9 Chronic obstructive pulmonary disease, unspecified; Z90.710 Acquired absence of both cervix and uterus
CPT/HCPCS: 93005; 99285; 36415; 85025; 80053; 84484; 70450; 93010; J3490

== ENCOUNTER 2020-06-21 23:31 | Emergency (ER) | payer MEDICAID ==
--- NOTE | 2020-06-21 23:38 | ER Document Report ---
ED Medical Screen (RME) - General Chief Complaint: Chest Pain Stated Complaint: CHEST PAIN Time Seen by Provider: 06/21/20 23:36 Primary Care Provider: VADIM REINA NP [Primary Care Provider] - Follow up as needed Mode of Arrival: Ambulatory Information source: Patient TRAVEL OUTSIDE OF THE [place] IN LAST 30 DAYS: No - HPI Patient complains to provider of: Chest pain Notes: 06/21/20 23:36 Patient with complaints of chest pain. She states the pain has been intermittent throughout the whole day. She does complain of some shortness of breath with it. No history of CAD. She has a history of hypertension, borderline high cholesterol. She is a smoker. No diabetes. Exam: Nontoxic, no distress. Lungs clear and equal throughout. Heart sounds normal. An initial examination was made on the patient as part of the triage process, and it was determined a more comprehensive evaluation was necessary. Initial orders were placed and patient was transferred to another provider in the ED who assumed care and finished evaluation and plan. - Related Data Allergies/Adverse Reactions: Penicillins Allergy (Verified 04/19/20 20:32) Past Medical History Pulmonary Medical History: Reports: Hx Asthma, Hx COPD GI Medical History: Reports: Hx Gastroesophageal Reflux Disease Musculoskeltal Medical History: Reports Hx Fibromyalgia, Reports Hx Muscle Spasm, Reports Hx Musculoskeletal Deformity, Reports Hx Musculoskeletal Trauma Psychiatric Medical History: Reports: Hx Anxiety, Hx Depression Past Surgical History: Reports: Hx Section, Hx Hysterectomy, Hx Orthopedic Surgery - "titanium plate in my neck" - Immunizations Hx Diphtheria, Pertussis, Tetanus Vaccination: Yes Physical Exam - Vital signs Vitals: Pulse BP Pulse Ox 80 135/107 H 100 06/21/20 23:35 06/21/20 23:35 06/21/20 23:35 Course - Vital Signs Vital signs: Temp Pulse Resp BP Pulse Ox 80 135/107 H 100 06/21/20 23:35 06/21/20 23:35 06/21/20 23:35 Doctor's Discharge - Discharge Referrals: VADIM REINA NP [Primary Care Provider] - Follow up as needed
[2020-06-22 01:19] LABS: ABSOLUTE BASOPHILS # (AUTO) 0.1 10^3/uL (0.0-0.2); ABSOLUTE LYMPHOCYTES (AUTO) 1.3 10^3/uL (0.5-4.7); ABSOLUTE MONOCYTES (AUTO) 0.3 10^3/uL (0.1-1.4); ABSOLUTE NEUT (AUTO) 9.3 10^3/uL (1.7-8.2); BASOPHILS % (AUTO) 0.6 % (0-2); EOSINOPHILS % (AUTO) 0.1 % (0-6); HEMATOCRIT 36.6 % (36.0-47.0); HEMOGLOBIN 11.8 g/dL (12.0-15.5); LYMPHOCYTES % (AUTO) 11.9 % (13-45); MEAN CORPUSCULAR HGB CONC 32.3 g/dL (32.0-36.0); MEAN CORPUSCULAR VOLUME 81 fl (80-97); MONOCYTES % (AUTO) 3.2 % (3-13); PLATELET COUNT 280 10^3/uL (150-450); RED BLOOD COUNT 4.54 10^6/uL (3.72-5.28); SEGMENTED NEUTROPHILS % (AUTO) 84.2 % (42-78); TOTAL CELLS COUNTED % (AUTO) 100 %
--- NOTE | 2020-06-22 01:24 | ER Document Report ---
ED General - General Chief Complaint: Chest Pain Stated Complaint: CHEST PAIN Time Seen by Provider: 06/21/20 23:36 Primary Care Provider: VADIM REINA NP [Primary Care Provider] - Follow up as needed Mode of Arrival: Ambulatory TRAVEL OUTSIDE OF THE [place] IN LAST 30 DAYS: No - HPI Notes: Patient is a 50-year-old female presents emergency department for evaluation of chest pain. She states this been going on for the last several days. She states she gets nauseated and very dizzy. Following that she will get a chest tightness that the across her chest diffusely. She states intermittently she will get a pain in the left side of her chest that feels like "someone is grabbing my heart." She states sometimes the pain has radiated into her left arm. She has shortness of breath which she states is present all of the time, seems slightly worse. She states that this pain is not brought about by exertion, she really cannot say anything that brings it on. Nothing seems to make it better. It sometimes lasts "just a few moments" and other times last up to 15 minutes. She has not tried any medications. She does have a history of a negative stress test in the past, but states that was multiple years ago. - Related Data Allergies/Adverse Reactions: Penicillins Allergy (Verified 04/19/20 20:32) Home Medications: Metoprolol, Neurontin Past Medical History - General Information source: Patient - Low PO2 on 2L all another 1 - Social History Smoking Status: Current Every Day Smoker Family History: Reviewed & Not Pertinent - Past Medical History Cardiac Medical History: Reports: Hx Hypertension Pulmonary Medical History: Reports: Hx Asthma, Hx COPD GI Medical History: Reports: Hx Gastroesophageal Reflux Disease Musculoskeletal Medical History: Reports Hx Fibromyalgia, Reports Hx Muscle Spasm, Reports Hx Musculoskeletal Deformity, Reports Hx Musculoskeletal Trauma Psychiatric Medical History: Reports: Hx Anxiety, Hx Depression Past Surgical History: Reports: Hx Section, Hx Hysterectomy, Hx Orthopedic Surgery - "titanium plate in my neck" - Immunizations Hx Diphtheria, Pertussis, Tetanus Vaccination: Yes Review of Systems - Review of Systems Constitutional: No symptoms reported EENT: No symptoms reported Cardiovascular: See HPI Respiratory: See HPI Gastrointestinal: See HPI Genitourinary: No symptoms reported Musculoskeletal: No symptoms reported Skin: No symptoms reported Neurological/Psychological: No symptoms reported Physical Exam - Vital signs Vitals: Pulse BP Pulse Ox 80 135/107 H 100 06/21/20 23:35 06/21/20 23:35 06/21/20 23:35 - Notes Notes: Is a 50-year-old female who appears older than her stated age, no acute distress. She is eating food when I walked into the room. Vital signs reviewed, please refer to chart. Head is normocephalic, atraumatic. Pupils equal round, reactive to light. Neck is supple without meningismus. Heart is regular rate and rhythm. Lungs are clear to auscultation bilaterally. Abdomen is soft, nontender, normoactive bowel sounds throughout. Extremities without cyanosis, clubbing. Posterior calves are nontender. Peripheral pulses are equal. Skin is warm and dry. Patient is awake, alert, neurological exam is nonfocal. Course - Re-evaluation Re-evalutation: 06/22/20 01:23 Patient presents emergency department for evaluation. She was initially seen through triage. She is placed on a shelter monitor. Laboratory investigations, EKG, imaging ordered. Patient has no chest pain at the time of my evaluation. She appears very comfortable. Waiting for lab work. Her EKG shows no acute ST elevation. We will continue to monitor. 06/22/20 01:50 Still awaiting patient's troponin. I do not expect this atypical pain to come back as showing any abnormalities with her troponin. Her EKG is unchanged. The patient is warned to quit smoking. She understands that despite her work-up becoming negative here, this does not mean that we can rule out coronary artery disease, it is very important she still follows up closely with primary care. Again, expecting serial troponins to be negative. If this is the case, patient will be discharged home with close follow-up. If any alteration in the plan happens as a result of abnormal lab work, please see the remainder of the patient's ED course and disposition on this note from another provider. - Vital Signs Vital signs: Temp Pulse Resp BP Pulse Ox 98.3 F 80 29 H 100/62 86 L 06/22/20 00:07 06/21/20 23:35 06/22/20 05:01 06/22/20 05:00 06/22/20 05:01 - Laboratory Results Result Diagrams: 06/22/20 00:45 06/22/20 00:45 Laboratory Results Interpreted: 06/22/20 06/22/20 00:45 00:45 WBC 11.0 H Hgb 11.8 L MCH 26.0 L RDW 16.0 H Lymph % (Auto) 11.9 L Absolute Neuts (auto) 9.3 H Seg Neutrophils % 84.2 H Glucose 112 H Critical Laboratory Results Reviewed: No Critical Results - Radiology Results Radiology Results Interpreted: 06/22/20 01:52 Chest x-ray interpreted by myself without the aid of radiologist as showing no acute cardiopulmonary disease Critical Radiology Results Reviewed: No Critical Results - EKG Interpretation by Me Additional EKG results interpreted by me: 06/22/20 01:25 Sinus mechanism with a rate of 76 bpm. Normal axis and intervals. Nonspecific T wave changes, but no acute ST elevation concerning for infarction. No significant change when compared to prior study of April 2020. Discharge - Discharge Clinical Impression: Chest pain Qualifiers: Chest pain type: unspecified Qualified Code(s): R07.9 - Chest pain, unspecified Condition: Stable Disposition: HOME, SELF-CARE Instructions: Chest Pain of Unclear Cause ([facility]) Additional Instructions: No clear cause was identified for your chest pain your symptoms today. As discussed, we cannot rule out coronary artery disease with EKG and blood work here. It is very important that you follow-up closely with your primary care provider in regards to this issue. You should also try to quit smoking. Return to the emergency department with worsening or new concerning symptoms of any sort. Referrals: VADIM REINA NP [Primary Care Provider] - Follow up as needed
[2020-06-22 01:26] LABS: ALBUMIN 4.2 g/dL (3.5-5.0); ALKALINE PHOSPHATASE 123 U/L (38-126); ANION GAP 7 (5-19); ASPARTATE AMINO TRANSFERASE 19 U/L (14-36); BILIRUBIN,DIRECT 0.2 mg/dL (0.0-0.4); BILIRUBIN,TOTAL 0.3 mg/dL (0.2-1.3); BLOOD UREA NITROGEN 12 mg/dL (7-20); CALCIUM 9.4 mg/dL (8.4-10.2); CARBON DIOXIDE 30 mmol/L (22-30); CHLORIDE 105 mmol/L (98-107); CREATINE KINASE 37 U/L (30-135); GLUCOSE 112 mg/dL (75-110); TOTAL PROTEIN 6.8 g/dL (6.3-8.2)
[2020-06-22 01:49] LABS: CREATINE KINASE MB < 0.22 ng/mL (<4.55); TROPONIN I < 0.012 ng/mL
--- NOTE | 2020-06-22 02:02 | RADIOLOGY REPORT (SQ) ---
CLINICAL HISTORY: chest pain COMPARISON: None. TECHNIQUE: XR CHEST 1 VIEW 06/22/2020 12:53 AM RN OTOLARYNGOLOGY FINDINGS: Cardiac silhouette is normal in size. Lungs are clear without consolidation, atelectasis, mass or edema. There is no pleural effusion. There is no pneumothorax. There are no acute osseous findings. IMPRESSION: Clear lungs.
[2020-06-22 05:25] VITALS: BP 100/62
== END 2020-06-22 05:28 | disposition home or self-care (01) ==
LOC: ER 23:31
DX: R07.89 Other chest pain (principal); R11.0 Nausea; R42 Dizziness and giddiness; Z79.899 Other long term (current) drug therapy; F17.200 Nicotine dependence, unspecified, uncomplicated; I10 Essential (primary) hypertension; J44.9 Chronic obstructive pulmonary disease, unspecified; R06.02 Shortness of breath; Z88.0 Allergy status to penicillin
CPT/HCPCS: 36415; 71045; 80053; 82550; 82553; 84484; 85025; 99285